=== PATIENT | male | born 1980 | race Caucasian/White ===

== ENCOUNTER 2016-06-16 22:38 | Emergency (ER) | payer MEDICARE, MEDICAID ==
[~2016-06-16] VITALS: Ht 185.4 cm; Wt 111.0 kg
[~2016-06-16 22:38] MED LIST: ARIP5TAB5 PO; Bupropion Hcl PO
[2016-06-16 23:16] VITALS: BP 135/80; PULSE 91; RESP 18; O2SAT 98
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
[2016-06-17 04:54] VITALS: BP 123/73; PULSE 78; RESP 16; O2SAT 98
[2016-06-17 06:12] VITALS: BP 122/76; PULSE 77; RESP 16; O2SAT 99
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
== END 2016-06-17 06:50 | disposition home or self-care (01) ==
LOC: SED 22:38
DX: S00.81XA Abrasion of other part of head, initial encounter (principal); S20.312A Abrasion of left front wall of thorax, initial encounter; S80.811A Abrasion, right lower leg, initial encounter; S80.812A Abrasion, left lower leg, initial encounter; T69.021A Immersion foot, right foot, initial encounter; T69.022A Immersion foot, left foot, initial encounter; Y04.0XXA Assault by unarmed brawl or fight, initial encounter; Y93.89 Activity, other specified; Y92.89 Other specified places as the place of occurrence of the external cause; Y99.8 Other external cause status; R46.2 Strange and inexplicable behavior; F17.200 Nicotine dependence, unspecified, uncomplicated; Z59.0 Homelessness
CPT/HCPCS: 70450; 71101; 81002; 96372; 99285; J1885

== ENCOUNTER 2016-06-21 18:54 | Emergency (ER) | payer MEDICARE, MEDICAID ==
[~2016-06-21] VITALS: Ht 185.4 cm; Wt 109.1 kg
[2016-06-21 19:05] VITALS: BP 119/73; PULSE 94; RESP 24; O2SAT 98
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
[2016-06-21] MEDS ORDERED: LORazepam 2 mg Tablet PO ONE (21:45)
[2016-06-22 05:43] VITALS: BP 109/75; PULSE 55; RESP 16; O2SAT 99
[2016-06-22 05:46] VITALS: BP 109/75; PULSE 80; RESP 16; O2SAT 99
[2016-06-22 07:35] LABS: BASOPHILS % (AUTO) 0.3 % (0-3); EOSINOPHILS % (AUTO) 4.2 % (0-5); MONOCYTES % (AUTO) 8.4 % (4-12); Mean Corpuscular Hemoglobin 27.7 pg (27.0-35.0); Mean Corpuscular Volume 84.7 fL (81-100); NEUTROPHILS % (AUTO) 70.9 % (40-74); Platelet Count 260 bil/L (150-400)
[2016-06-22] MEDS ORDERED: Trimethoprim-Sulfa 160 mg-800 mg Tablet PO ONE (09:55)
[2016-06-22 09:56] VITALS: BP 114/67; PULSE 82; RESP 16; O2SAT 94
[2016-06-22 14:08] VITALS: BP 120/69; PULSE 78; RESP 16; O2SAT 96
== END 2016-06-22 15:15 | disposition home or self-care (01) ==
LOC: SED 18:54
DX: F43.0 Acute stress reaction (principal); L97.419 Non-pressure chronic ulcer of right heel and midfoot with unspecified severity; L84 Corns and callosities; S90.811A Abrasion, right foot, initial encounter; S90.812A Abrasion, left foot, initial encounter; X50.9XXA Other and unspecified overexertion or strenuous movements or postures, initial encounter; Y93.01 Activity, walking, marching and hiking; Y92.89 Other specified places as the place of occurrence of the external cause; Y99.8 Other external cause status; F32.9 Major depressive disorder, single episode, unspecified; F17.200 Nicotine dependence, unspecified, uncomplicated; Z59.0 Homelessness

== ENCOUNTER 2016-06-23 22:11 | Emergency (ER) | payer MEDICARE, MEDICAID ==
[~2016-06-23] VITALS: Ht 185.4 cm; Wt 102.3 kg
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
[2016-06-23 22:26] VITALS: BP 118/70; PULSE 82; RESP 18; O2SAT 97
[2016-06-23 22:58] LABS: Mean Corpuscular Hemoglobin 27.3 pg (27.0-35.0); Mean Corpuscular Volume 83.9 fL (81-100); NEUTROPHILS % (AUTO) 71.2 % (40-74); Platelet Count 308 bil/L (150-400)
[2016-06-23 22:59] LABS: BASOPHILS % (AUTO) 0.3 % (0-3); EOSINOPHILS % (AUTO) 3.3 % (0-5); MONOCYTES % (AUTO) 8.4 % (4-12)
[2016-06-24 02:27] VITALS: BP 114/67; PULSE 76; RESP 18; O2SAT 96
[2016-06-24 06:17] VITALS: BP 122/76; PULSE 73; RESP 18; O2SAT 98
== END 2016-06-24 06:18 | disposition home or self-care (01) ==
LOC: SED 22:11
DX: R45.851 Suicidal ideations (principal); F43.0 Acute stress reaction; F32.9 Major depressive disorder, single episode, unspecified; F84.5 Asperger's syndrome; F12.10 Cannabis abuse, uncomplicated; F17.210 Nicotine dependence, cigarettes, uncomplicated; Z59.0 Homelessness